=== PATIENT | male | born 2000 | race American Indian/Alaskan Native ===

== ENCOUNTER 2018-12-29 07:28 | Emergency (ER) | payer OTHER ==
[2018-12-29 07:40] VITALS: BP 111/63
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
== END 2018-12-29 09:18 | disposition home or self-care (01) ==
LOC: ED 07:28
DX: S16.1XXA Strain of muscle, fascia and tendon at neck level, initial encounter (principal); Z79.899 Other long term (current) drug therapy; V89.2XXA Person injured in unspecified motor-vehicle accident, traffic, initial encounter; Y93.89 Activity, other specified; Y92.488 Other paved roadways as the place of occurrence of the external cause; Y99.8 Other external cause status
CPT/HCPCS: 99282